=== PATIENT | male | born 1970 | race Caucasian/White ===

== ENCOUNTER 2018-03-01 19:55 | Emergency (ER) | payer OTHER ==
[~2018-03-01] VITALS: Ht 188 cm; Wt 86.2 kg
[2018-03-01 20:00] VITALS: BP 129/77
== END 2018-03-01 20:35 | disposition home or self-care (01) ==
LOC: ER 20:06
DX: G89.29 Other chronic pain (principal); R51 Headache; Z60.2 Problems related to living alone
CPT/HCPCS: 99283; A4606; Z7610

== ENCOUNTER 2019-07-30 16:56 | Emergency (ER) | payer OTHER ==
[~2019-07-30] VITALS: Ht 188 cm; Wt 88.5 kg
--- NOTE | 2019-07-30 17:20 | NUR ---
PT BIB SELF C/O L SIDED CHEST WALL PAIN, PAIN WHEN TAKING DEEP BREATH X 1 WEEK, PT IS AAOX4, NOT IN RESPIRATORY DISTRESS, HOOKED TO FOOD SANITARIAN, KEPT RESTED AND COMFORTABLE, WILL CONTINUE TO MONITOR.
--- NOTE | 2019-07-30 17:53 | NUR ---
AT BEDSIDE FOR EVAL.
--- NOTE | 2019-07-30 18:00 | NUR ---
IV LINE ESTABLISHED BLOOD DRAWN AND SENT TO LAB.
[2019-07-30 18:07] LABS: BASOPHILS # (AUTO) 0.1 /CMM (0.0-0.2); BASOPHILS % (AUTO) 0.9 % (0.0-2.0); EOSINOPHILS % (AUTO) 3.2 % (0.0-6.0); HEMATOCRIT 45 % (39-51); HEMOGLOBIN 15.3 g/dL (13.5-17.5); LYMPHOCYTES # (AUTO) 2.7 /CMM (0.8-4.8); LYMPHOCYTES % (AUTO) 30.9 % (20.0-44.0); MEAN CORPUSCULAR HGB CONC 34 g/dl (31.0-36.0); MEAN CORPUSCULAR VOLUME 89 fL (80-96); MONOCYTES # (AUTO) 0.7 /CMM (0.1-1.30); MONOCYTES % (AUTO) 7.9 % (2.0-12.0); NEUTROPHILS % (AUTO) 57.1 % (43.0-81.0); PLATELET COUNT (AUTO) 297 /CMM (150-450); RED BLOOD CELL COUNT(AUTO) 5.05 MIL/uL (4.5-6.0); WHITE BLOOD COUNT (AUTO) 8.7 K/uL (4.3-11.0)
--- NOTE | 2019-07-30 18:11 | NUR ---
AD OPERATIONS COORDINATOR AT BEDSIDE FOR XRAY.
[2019-07-30 18:23] LABS: CALCIUM, SERUM 8.8 mg/dL (8.5-10.1); CARBON DIOXIDE 30 mmol/L (21-32); CHLORIDE 103 mmol/L (98-107); CREATININE 1.3 mg/dL (0.6-1.3); GLUCOSE 90 mg/dL (74-106); POTASSIUM 4.2 mmol/L (3.5-5.1); SODIUM SERUM 139 mmol/L (136-145); UREA NITROGEN, BLOOD 12 mg/dL (7-18)
[2019-07-30 18:37] LABS: ALANINE AMINOTRANSFERASE 24 U/L (12-78); ALBUMIN 4.1 g/dL (3.4-5.0); ALKALINE PHOSPHATASE 89 U/L (46-116); ASPARTATE AMINOTRANSFERASE 15 U/L (15-37); B-TYPE NATRIURETIC PEPTIDE 32 PG/ML (0-125); BILIRUBIN,TOTAL 0.3 mg/dL (0.2-1.0); TOTAL PROTEIN, SERUM 7.1 g/dL (6.4-8.2)
[2019-07-30] MEDS ORDERED: IBUPROFEN 600 MG TABLET PO ONE ×2 (19:30→19:38)
[2019-07-30 20:03] VITALS: BP 119/73
--- NOTE | 2019-07-30 20:03 | NUR ---
Patient discharged to home in stable condition. Written and verbal after care instructions given. Patient verbalizes understanding of instruction.
--- NOTE | 2019-07-30 20:03 | NUR ---
IV removed. Catheter intact and site benign. Pressure and 4x4 applied to site. No bleeding noted.
== END 2019-07-30 20:03 | disposition home or self-care (01) ==
LOC: ER 17:03
DX: R07.81 Pleurodynia (principal); F32.9 Major depressive disorder, single episode, unspecified; Z60.2 Problems related to living alone
CPT/HCPCS: 36415; 71045-TC; 80048-TC; 80076-TC; 83880; 84484-TC; 85025-TC

== ENCOUNTER 2021-05-14 19:02 | Emergency (ER) | payer OTHER ==
[~2021-05-14] VITALS: Ht 198.1 cm; Wt 89.8 kg
--- NOTE | 2021-05-14 19:44 | NUR ---
BIBSELF C/O RIGHT EYE PAIN SINCE SATURDAY, TODAY LEFT EYE PAIN W/ PETERS TAKES NORCO 10 KEYLINER NO RELIEF. PT A/OX4. TOLERATING R/A WELL WITH NO SOB
--- NOTE | 2021-05-14 20:23 | NUR ---
SENIOR SHAREPOINT ARCHITECT AT PT'S BEDSIDE
[2021-05-14] MEDS ORDERED: FLUORESCEIN SODIUM OPHTH 1 EA STRIP ONE (20:24)
[2021-05-14] MEDS ORDERED: FLUORESCEIN SODIUM OPHTH 1 EA STRIP OP ONE (20:30)
[2021-05-14] MEDS ORDERED: TETRAcaine 5 ML BOTTLE EACHEYE ONE (20:30)
[2021-05-14 20:47] LABS: BASOPHILS % (AUTO) 0.5 % (0.0-2.0); EOSINOPHILS % (AUTO) 1.3 % (0.0-6.0); HEMATOCRIT 52 % (39-51); LYMPHOCYTES # (AUTO) 2.4 K/uL (0.8-4.8); LYMPHOCYTES % (AUTO) 27.3 % (20.0-44.0); MEAN CORPUSCULAR HGB CONC 34 g/dl (31.0-36.0); MEAN CORPUSCULAR VOLUME 87 fL (80-96); MONOCYTES # (AUTO) 0.8 K/uL (0.1-1.30); MONOCYTES % (AUTO) 8.8 % (2.0-12.0); NEUTROPHILS # (AUTO) 5.5 K/uL (1.8-8.9); NEUTROPHILS % (AUTO) 62.1 % (43.0-81.0); PLATELET COUNT (AUTO) 292 K/uL (150-450); RED BLOOD CELL COUNT(AUTO) 6.02 MIL/uL (4.5-6.0); WHITE BLOOD COUNT (AUTO) 8.9 K/uL (4.3-11.0)
--- NOTE | 2021-05-14 20:50 | NUR ---
BILATERAL EYES 20/20 VISION ASSESSMENT
--- NOTE | 2021-05-14 20:54 | NUR ---
DR LISANDRA CHARLTON AT PT'S BEDSIDE
[2021-05-14 21:04] LABS: CALCIUM, SERUM 9.2 mg/dL (8.5-10.1); CREATININE 1.5 mg/dL (0.6-1.3); POTASSIUM 3.9 mmol/L (3.5-5.1)
[2021-05-14] MEDS ORDERED: GABA300C PO (21:07)
[2021-05-14 21:12] LABS: BAND % (MANUAL) 4 % (0.0-5.0); EOSINOPHILS % (MANUAL) 2 % (0-4); LYMPHOCYTES % (MANUAL) 20 % (16-48); MONOCYTES % (MANUAL) 12 % (0-11.0); NEUTROPHILS % (MANUAL) 59 (42-76); REACTIVE LYMPHOCYTES 3 % (0-0)
--- NOTE | 2021-05-14 21:30 | NUR ---
Laila haywood in ED - 05/14/21 at 2133 by MART PT TRANSFERRED TO [id number] VIA ACLS PROTOCOL. TOLERATED WELL. ALL BELONGINGS WITH PT
--- NOTE | 2021-05-14 21:33 | NUR ---
Patient discharged to home in stable condition. RX Written and verbal after care instructions given. Patient verbalizes understanding of instruction. PT ambulatory with a steady gait. Visual acuity OD / OS 20/20
[2021-05-14 21:34] VITALS: BP 134/77
== END 2021-05-14 21:35 | disposition home or self-care (01) ==
LOC: ER 19:04
DX: G50.0 Trigeminal neuralgia (principal); F32.A Depression, unspecified; F17.200 Nicotine dependence, unspecified, uncomplicated; Z86.69 Personal history of other diseases of the nervous system and sense organs; Z60.2 Problems related to living alone; Z79.891 Long term (current) use of opiate analgesic
CPT/HCPCS: 36415; 80048-TC; 85025-TC; 85652-TC